=== PATIENT | female | born 2000 ===

== ENCOUNTER 2018-02-08 09:32 | Emergency (ER) | payer BC ==
[2018-02-08 09:47] VITALS: BMI 27.6
[2018-02-08 09:56] VITALS: TEMP 98.5
--- NOTE | 2018-02-08 10:12 | ED PDOC ---
Arrival/HPI - General Chief Complaint: Female Genitourinary Time Seen by Provider: 02/08/18 10:07 Historian: Patient - History of Present Illness Narrative History of Present Illness (Text): 02/08/18 10:12 This 17 yo female presents to this emergency department complaining of suprapubic pain, hematuria, urinary frequency, and dysuria x 2 days. Patient also stated pain radiates to her right lower abdomen. She noted irregular menstruation. Patient denies vaginal discharge, std exposure, fever, shortness of breath, chest pain, skin rash, denies , denies sexually active, or abnormal gait. Time/Duration: Other (see hpi) Context: Home Past Medical History - Provider Review Nursing Documentation Reviewed: Yes - Infectious Disease Hx of Infectious Diseases: None - Psychiatric Hx Substance Use: No Family/Social History - Physician Review Nursing Documentation Reviewed: Yes Family/Social History: Other (noncontributory) Smoking Status: Never Smoked Hx Alcohol Use: No Hx Substance Use: No Allergies/Home Meds Allergies/Adverse Reactions: Allergies No Known Allergies Allergy (Verified 02/08/18 09:47) Review of Systems - Review of Systems Constitutional: Normal. absent: Fatigue, Weight Change, Fevers Eyes: Normal ENT: Normal Respiratory: Normal. absent: SOB, Cough Cardiovascular: Normal Gastrointestinal: Abdominal Pain (suprapubic pain). absent: Stool Changes, Constipation, Diarrhea, Nausea, Vomiting, Appetite Changes, Hematochezia, Hematemesis Genitourinary Female: Dysuria, Frequency, Other (LMP: NOW). absent: Hematuria, Urine Output Changes, Vaginal Discharge Musculoskeletal: Normal Skin: Normal Neurological: Normal. absent: Headache, Dizziness, Focal Weakness, Gait Changes Endocrine: Normal Hemo/Lymphatic: Normal Psychiatric: Normal Physical Exam Vital Signs Temp Pulse Resp BP Pulse Ox 02/08/18 15:14 115/69 02/08/18 15:12 70 17 115/69 98 02/08/18 13:30 72 17 108/71 98 02/08/18 09:56 98.5 F 73 18 103/68 99 Temperature: Afebrile Blood Pressure: Normal Pulse: Regular Respiratory Rate: Normal Appearance: Positive for: Well-Appearing, Non-Toxic, Comfortable Pain Distress: None Mental Status: Positive for: Alert and Oriented X 3 - Systems Exam Head: Present: Atraumatic, Normocephalic Pupils: Present: PERRL Extroacular Muscles: Present: EOMI Conjunctiva: Present: Normal Mouth: Present: Moist Mucous Membranes Neck: Present: Normal Range of Motion. No: Meningeal Signs, MIDLINE TENDERNESS Respiratory/Chest: Present: Clear to Auscultation, Good Air Exchange. No: Respiratory Distress, Accessory Muscle Use Cardiovascular: Present: Regular Rate and Rhythm, Normal S1, S2. No: Murmurs Abdomen: Present: Tenderness (Mild RLQ tenderness. No rabound, no guarding). No: Distention, Peritoneal Signs Back: Present: Normal Inspection. No: CVA Tenderness Upper Extremity: Present: Normal Inspection, Normal ROM, NORMAL PULSES, Neurovascularly Intact, Capillary Refill < 2s. No: Cyanosis, Edema Lower Extremity: Present: Normal Inspection, NORMAL PULSES, Normal ROM, Neurovascularly Intact, Capillary Refill < 2 s. No: Edema Neurological: Present: GCS=15, CN II-XII Intact, Speech Normal, Motor Func Grossly Intact, Normal Sensory Function, Normal Cerebellar Funct, Gait Normal, Memory Normal Skin: Present: Warm, Dry, Normal Color. No: Rashes Psychiatric: Present: Alert, Oriented x 3, Normal Insight, Normal Concentration Medical Decision Making ED Course and Treatment: 02/08/18 14:52 Re-evaluation. Patient feels better. Discussed results and plan with patient who expresses understanding. All questions answered and there is agreement with the plan to discharge home with instructions. Patient stable for discharge. Return if symptoms persist or worsen Patient stated her suprapubic pain has improved. She denies pelvic pain at this time. She stated she is not sexually active, therefore, she denies STD exposure. Patient feels well and she wishes to be discharged home. Re-evaluation Time: 14:53 Reassessment Condition: Re-examined, Improved - Lab Interpretations Lab Results: 02/08/18 11:40 02/08/18 11:40 Lab Results 02/08/18 11:40: Sodium 141, Potassium 4.1, Chloride 103, Carbon Dioxide 27, Anion Gap 15, BUN 6 L, Creatinine 0.5 L, Est GFR ( Amer) > 60, Est GFR ( Non-Af Amer) > 60, Random Glucose 92, Calcium 9.5, Magnesium 2.1, Total Bilirubin 0.5, AST 23, ALT 21, Alkaline Phosphatase 81, Total Protein 8.0, Albumin 4.6, Globulin 3.4, Albumin/Globulin Ratio 1.3 02/08/18 11:40: WBC 4.6, RBC 5.55, Hgb 13.2, Hct 41.1, MCV 74.1 L, MCH 23.8 L, MCHC 32.1, RDW 13.9, Plt Count 285, MPV 10.2, Gran % 45.3 L, Lymph % (Auto) 44.0 H, [place] % (Auto) 8.8 H, Eos % (Auto) 1.5, Baso % (Auto) 0.4, Gran # 2.10, Lymph # (Auto) 2.0, [place] # (Auto) 0.4, Eos # (Auto) 0.1, Baso # (Auto) 0.02 02/08/18 10:20: Urine Color Yellow, Urine Appearance Clear, Urine pH 8.0, Ur Specific [place] 1.020, Urine Protein 30 H, Urine Glucose (UA) Negative, Urine Ketones Negative, Urine Blood Large H, Urine Nitrate Negative, Urine Bilirubin Negative, Urine Urobilinogen 0.2, Ur Leukocyte Esterase Trace H, Urine RBC 25 - 30, Urine WBC 2 - 5, Ur Epithelial Cells 4 - 5, Urine Bacteria Many I have reviewed the lab results: Yes Interpretation: Abnormal lab values - RAD Interpretation Narrative RAD Interpretations (Text): 02/08/18 14:41 Date of service: 02/08/2018 PROCEDURE: CT Abdomen and Pelvis with contrast HISTORY: RLQ abd. pain COMPARISON: None. TECHNIQUE: Contrast dose: 100 cc of Omni 350 Radiation dose: Total exam DLP = 556 mGy-cm. This CT exam was performed using one or more of the following dose reduction techniques: Automated exposure control, adjustment of the mA and/or kV according to patient size, and/or use of iterative reconstruction technique. FINDINGS: LOWER THORAX: Unremarkable. LIVER: Unremarkable. No gross lesion or ductal dilatation. GALLBLADDER AND BILE DUCTS: Unremarkable. PANCREAS: Unremarkable. No gross lesion or ductal dilatation. SPLEEN: Unremarkable. ADRENALS: Unremarkable. No mass. KIDNEYS AND URETERS: Unremarkable. No hydronephrosis. No solid mass. VASCULATURE: Unremarkable. No aortic aneurysm. BOWEL: Unremarkable. No obstruction. No gross mural thickening. APPENDIX: Normal appendix. PERITONEUM: Minimal free fluid in the cul-de-sac LYMPH NODES: Unremarkable. No enlarged lymph nodes. BLADDER: Unremarkable. REPRODUCTIVE: 2.8 cm right ovarian cyst BONES: No acute fracture. OTHER FINDINGS: None. IMPRESSION: Minimal free fluid in the cul-de-sac consistent with recent ovarian cyst rupture. No evidence of appendicitis Radiology Orders: 02/08/18 11:06 ABD & PELVIS IV CONTRAST ONLY [CT] Stat - Medication Orders Current Medication Orders: Discontinued Medications Cephalexin Monohydrate (Keflex) 500 mg PO STAT STA PRN Reason: Protocol Stop: 02/08/18 14:54 Last Admin: 02/08/18 15:10 Dose: 500 mg Ketorolac Tromethamine (Toradol) 15 mg IVP STAT STA Stop: 02/08/18 11:08 Last Admin: 02/08/18 11:51 Dose: 15 mg MAR Pain Assessment Document 02/08/18 11:51 SF (Rec: 02/08/18 11:51 [facility] [id number]) Pain Reassessment Is this a pain reassessment? Yes Sleep Is patient sleeping during reassessment? No Presence of Pain Presence of Pain Yes IVP Administration Document 02/08/18 11:51 SF (Rec: 02/08/18 11:51 [facility] [id number]) Charges for Administration # of IVP Administrations 1 Disposition/Present on Arrival - Present on Arrival Any Indicators Present on Arrival: No History of DVT/PE: No History of Uncontrolled Diabetes: No Urinary Catheter: No History of Decub. Ulcer: No History Surgical Site Infection Following: None - Disposition Have Diagnosis and Disposition been Completed?: Yes Diagnosis: UTI (urinary tract infection), Ruptured ovarian cyst Disposition: HOME/ ROUTINE Disposition Time: 14:54 Patient Plan: Discharge Patient Problems: Current Active Problems Problem Status Onset UTI (urinary tract infection) Acute Ruptured ovarian cyst Acute Condition: GOOD Discharge Instructions (ExitCare): Urinary Tract Infection, Adult (DC), Ovarian Cyst (DC) Additional Instructions: Llama a tu doctor para seguimiento medico en 1-2 demarco. Olga medicina saniya a side prescripta. Regrese si symptoms empeoran Prescriptions: Cephalexin [Keflex] 500 mg PO BID #14 capsule Ibuprofen [Motrin] 400 mg PO Q8H PRN #20 tab PRN Reason: Pain, Severe (8-10) Referrals: Suzan Glover MD [Staff Provider] - Follow up with [facility] [Outside] - [facility] with [facility] [Outside] - Follow up with primary Forms: [employer] (Irish), WORK NOTE
[2018-02-08 10:52] LABS: URINE APPEARANCE CLEAR (CLEAR); URINE BILIRUBIN NEGATIVE (NEGATIVE); URINE BLOOD LARGE (NEGATIVE); URINE COLOR YELLOW (YELLOW); URINE GLUCOSE (UA) NEGATIVE (NEGATIVE); URINE LEUKOCYTE ESTERASE TRACE Leu/uL (NEGATIVE); URINE PROTEIN 30 mg/dL (<30 mg/dL); URINE UROBILINOGEN 0.2 E.U./dL (<1 E.U./dL)
[2018-02-08 10:57] LABS: URINE BACTERIA MANY (NEG); URINE RBC 25 - 30 /hpf (0-2)
[2018-02-08 12:14] LABS: BASO # 0.02 K/mm3 (0.0-2.0); BASO % 0.4 % (0.0-3.0); EOS # 0.1 (0.0-0.7); EOS % 1.5 % (1.5-5.0); GRAN # 2.1 (1.4-6.5); GRAN % 45.3 % (50.0-68.0); HEMOGLOBIN 13.2 g/dL (12.0-16.0); MEAN CELL VOLUME 74.1 fl (80.0-105.0); MEAN CORPUSCULAR HEMOGLOBIN 23.8 pg (25.0-35.0); MEAN CORPUSCULAR HGB CONC 32.1 g/dl (31.0-37.0); MEAN PLATELET VOLUME 10.2 fl (7.0-11.0); MONO # 0.4 (0.1-0.6); MONO % 8.8 % (1.0-6.0); RBC 5.55 10^6/uL (3.5-6.1); RED CELL DISTRIBUTION WIDTH 13.9 % (11.5-14.5); WHITE BLOOD COUNT 4.6 10^3/ul (4.5-11.0)
[2018-02-08 12:17] LABS: ALB/GLOB RATIO 1.3 (1.1-1.8); ALBUMIN 4.6 g/dL (3.0-4.8); ALT/SGPT 21 U/L (7-56); AST/SGOT 23 U/L (14-36); BLOOD UREA NITROGEN 6 mg/dL (7-21); CALCIUM 9.5 mg/dL (8.4-10.5); GFR AFRICAN-AMERICAN > 60; GFR NON-AFRICAN AMERICAN > 60
[2018-02-08] MEDS ORDERED: Iohexol 350 MG/100 ML VIAL ONE (12:56)
--- NOTE | 2018-02-08 13:30 | CT ---
Date of service: 02/08/2018 PROCEDURE: CT Abdomen and Pelvis with contrast HISTORY: RLQ abd. pain COMPARISON: None. TECHNIQUE: Contrast dose: 100 cc of Omni 350 Radiation dose: Total exam DLP = 556 mGy-cm. This CT exam was performed using one or more of the following dose reduction techniques: Automated exposure control, adjustment of the mA and/or kV according to patient size, and/or use of iterative reconstruction technique. FINDINGS: LOWER THORAX: Unremarkable. LIVER: Unremarkable. No gross lesion or ductal dilatation. GALLBLADDER AND BILE DUCTS: Unremarkable. PANCREAS: Unremarkable. No gross lesion or ductal dilatation. SPLEEN: Unremarkable. ADRENALS: Unremarkable. No mass. KIDNEYS AND URETERS: Unremarkable. No hydronephrosis. No solid mass. VASCULATURE: Unremarkable. No aortic aneurysm. BOWEL: Unremarkable. No obstruction. No gross mural thickening. APPENDIX: Normal appendix. PERITONEUM: Minimal free fluid in the cul-de-sac LYMPH NODES: Unremarkable. No enlarged lymph nodes. BLADDER: Unremarkable. REPRODUCTIVE: 2.8 cm right ovarian cyst BONES: No acute fracture. OTHER FINDINGS: None. IMPRESSION: Minimal free fluid in the cul-de-sac consistent with recent ovarian cyst rupture. No evidence of appendicitis
[2018-02-08 15:12] VITALS: BP 115/69; PULSE 70; RESP 17
[2018-02-08 17:51] VITALS: O2SAT 99
== END 2018-02-08 15:14 | disposition home or self-care (01) ==
LOC: ED 09:32
DX: N39.0 Urinary tract infection, site not specified (principal); N83.201 Unspecified ovarian cyst, right side
CPT/HCPCS: 74177; 80053; 81001; 81025; 83735; 85025; 87086; 96374; 99285; J1885; Q9967

== ENCOUNTER 2018-04-22 14:20 | Emergency (ER) | payer BC ==
[2018-04-22 14:20] VITALS: BMI 27.6
[2018-04-22] MEDS ORDERED: Naproxen 550 mg Tab PO STA (14:43)
[2018-04-22 14:47] VITALS: RESP 18; TEMP 98.2
--- NOTE | 2018-04-22 14:47 | ED PDOC ---
Arrival/HPI - General Time Seen by Provider: 04/22/18 14:21 Historian: Patient - History of Present Illness Narrative History of Present Illness (Text): 04/22/18 14:40 A 17 year old female, with no significant past medical history, presents to the emergency department complaining of right knee injury. Patient reports she was reaching for something at home and resulted in slipping and twisting her right knee. Patient states the knee popped out and placed knee back in. Afterwards she was brought by family to immediately have her knee evaluated. Patient denies any other complaints at this time. No PMD Past Medical History - Provider Review Nursing Documentation Reviewed: Yes - Infectious Disease Hx of Infectious Diseases: None - Psychiatric Hx Substance Use: No Family/Social History - Physician Review Nursing Documentation Reviewed: Yes Family/Social History: No Known Family HX Smoking Status: Never Smoked Hx Alcohol Use: No Hx Substance Use: No Allergies/Home Meds Allergies/Adverse Reactions: Allergies No Known Allergies Allergy (Verified 02/08/18 09:47) Review of Systems - Physician Review All systems were reviewed & negative as marked: Yes - Review of Systems Musculoskeletal: Other (right knee injury s/p slip and fall.) Neurological: absent: Headache, Dizziness Physical Exam Vital Signs Reviewed: Yes Vital Signs Temp Pulse Resp BP Pulse Ox 04/22/18 14:36 98.2 F 78 18 112/86 99 Temperature: Afebrile Blood Pressure: Normal Pulse: Regular Respiratory Rate: Normal Appearance: Positive for: Well-Appearing, Non-Toxic, Comfortable Pain Distress: None Mental Status: Positive for: Alert and Oriented X 3 - Systems Exam Head: Present: Atraumatic, Normocephalic Respiratory/Chest: Present: Clear to Auscultation, Good Air Exchange. No: Respiratory Distress, Accessory Muscle Use Cardiovascular: Present: Regular Rate and Rhythm, Normal S1, S2. No: Murmurs Abdomen: No: Tenderness, Distention, Peritoneal Signs Back: Present: Normal Inspection Upper Extremity: Present: Normal Inspection. No: Cyanosis, Edema Lower Extremity: Present: Tenderness (right knee), Swelling (right knee (mild)) Neurological: Present: GCS=15, CN II-XII Intact, Speech Normal Skin: Present: Warm, Dry, Normal Color. No: Rashes Psychiatric: Present: Alert, Oriented x 3, Normal Insight, Normal Concentration Medical Decision Making ED Course and Treatment: 04/22/18 14:43 Impression: 17 year old female with right knee injury. Physical exam shows right knee mild swelling and tenderness; no other acute findings on examination. Plan: -- Right Knee X-Ray -- Naproxen -- POC Urine Test -- Reassess and disposition Progress Notes: 04/22/2018 16:33 Right Knee X-Ray IMPRESSION: No significant or acute findings to account for/related to the clinical presentation. Concordant results with the preliminary interpretation rendered by the emergency department physician procedure. Dictator: Todd Thomas MD 04/22/18 16:59 ?patella dislocation already reduced by pt. xr neg. given immbolizer andcrutches outpt fu. - Scribe Statement The provider has reviewed the documentation as recorded by the Scribe John Kee Provider Scribe Attestation: All medical record entries made by the Scribe were at my direction and personally dictated by me. I have reviewed the chart and agree that the record accurately reflects my personal performance of the history, physical exam, medical decision making, and the department course for this patient. I have also personally directed, reviewed, and agree with the discharge instructions and di sposition. Disposition/Present on Arrival - Present on Arrival Any Indicators Present on Arrival: No History of DVT/PE: No History of Uncontrolled Diabetes: No Urinary Catheter: No History Surgical Site Infection Following: None - Disposition Have Diagnosis and Disposition been Completed?: Yes Diagnosis: Knee sprain Disposition: HOME/ ROUTINE Disposition Time: 02:00 Patient Problems: Current Active Problems Problem Status Onset Knee sprain Acute Condition: STABLE Discharge Instructions (ExitCare): Knee Sprain (DC), Dislocated Kneecap Additional Instructions: follow up with specialist. return to er with worsening symptoms or concerns. Prescriptions: RX: Naproxen 500 mg PO BID PRN #14 tablet PRN Reason: Pain, Mild (1-3) Referrals: Soy Gramajo DO [Staff Provider] - Follow up with primary Forms: [employer] (Indonesian)
--- NOTE | 2018-04-22 16:37 | RAD ---
Date of service: 04/22/2018 PROCEDURE: Right Knee Radiographs. HISTORY: trauma COMPARISON: None. FINDINGS: BONES: Normal. No fracture. JOINTS: Normal. No osteoarthritis. JOINT EFFUSION: None. OTHER FINDINGS: None. IMPRESSION: No significant or acute findings to account for/ related to the clinical presentation. Concordant results with the preliminary interpretation rendered by the emergency department physician procedure.
[2018-04-22 17:01] VITALS: BP 117/64; PULSE 77; O2SAT 100
== END 2018-04-22 16:30 | disposition home or self-care (01) ==
LOC: ED 14:20
DX: S83.91XA Sprain of unspecified site of right knee, initial encounter (principal); W01.0XXA Fall on same level from slipping, tripping and stumbling without subsequent striking against object, initial encounter